=== PATIENT | male | born 1975 | race Caucasian/White ===

== ENCOUNTER 2018-09-08 17:06 | Emergency (ER) | payer OTHER ==
[2018-09-08 17:12] VITALS: BP 158/101
[2018-09-08] MEDS ORDERED: predniSONE 20 MG TABLET PO STA (17:35)
[2018-09-08] MEDS ORDERED: valACYclovir 500 MG TABLET PO STA (17:35)
--- NOTE | 2018-09-08 17:40 | ED Physician Documentation ---
PD HPI FOCAL NEURO - Stated complaint Stated Complaint: LT FACE NUMB/MIGRAINE - Chief complaint Chief Complaint: Neuro - History obtained from History obtained from: Patient, Family - History of Present Illness Timing - onset: How many hours ago (4.5) Timing - duration: Hours (4.5) Timing - details: Gradual onset Severity of deficit: Moderate Weakness: Face Numbness: Face Associated symptoms: No: Headache, Nausea / vomiting, Seizure, Syncope, Fall, H ead injury, Chest pain Contributing factors: negative: Anticoagulated, Vascular dz, Atrial fibrillation, Prosthetic heart valve Baseline status: positive: A&OX3, ambulatory, indep Similar symptoms before: Diagnosis (States has had similar symptoms with migraines in the past) Recently seen: Not recently seen - Additional information Additional information: Patient states that the left side of his face started going numb and difficulty moving at approximately 4 hours prior to arrival. Yesterday he had difficulties with taste on the left side of the tongue. Review of Systems Constitutional: denies: Fever, Chills GI: denies: Vomiting Skin: denies: Rash Musculoskeletal: denies: Neck pain, Back pain Neurologic: denies: Headache PD PAST MEDICAL HISTORY - Past Medical History Cardiovascular: Hypertension Musculoskeletal: Chronic back pain - Present Medications Home Medications: Ambulatory Orders Medication Instructions Recorded Confirmed Ibuprofen [Motrin] 1 tab PO Q8HR PRN 04/11/16 04/11/16 Rizatriptan Benzoate [Maxalt] 10 mg PO DAILY 04/11/16 04/11/16 hydroCHLOROthiazide 25 mg PO DAILY 04/11/16 04/11/16 [Hydrochlorothiazide] Valacyclovir HCl [Valtrex] 1,000 mg PO TID #21 tablet 09/08/18 predniSONE [Deltasone] 10 mg PO [id number] #42 tab 09/08/18 - Allergies Allergies/Adverse Reactions: Allergies Allergy/AdvReac Type Severity Reaction Status Date / Time methylphenidate HCl * Allergy Unknown Verified 09/08/18 17:12 [From Ritalin] - Social History Does the pt smoke?: No Smoking Status: Never smoker Does the pt drink ETOH?: Yes PD ED PE NORMAL - Vitals Vital signs reviewed: Yes - General General: Alert and oriented X 3, No acute distress, Well developed/nourished - HEENT HEENT: PERRL, EOMI, Moist mucous membranes - Neck Neck: Supple, no meningeal sign - Cardiac Cardiac: RRR - Respiratory Respiratory: No respiratory distress, Clear bilaterally - Abdomen Abdomen: Soft, Non tender, Non distended - Derm Derm: Warm and dry - Neuro Neuro: Alert and oriented X 3 Eye Opening: Spontaneous Motor: Obeys Commands Verbal: Oriented GCS Score: 15 - Psych Psych: Normal mood, Normal affect - Free text exam Free text exam: Patient with flattening of the left nasolabial fold. Positive Stroud's phenomenon of the left eye. Forehead is involved on raising of the eyebrows on the left side. NIHSS - Time Time: 17:30 - Level of Consciousness Level of consciousness: (0) Alert, Keenly responsive LOC Questions: (0) Answers both Q's correct LOC Commands: (0) Performs both correctly - Gaze Best Gaze: (0) Normal - Visual Visual: (0) No loss - Facial Palsy Facial Palsy: (2) Partial paralysis - Motor Arms (both separate) Motor Arm (right): (0) No drift Motor Arm (left): (0) No drift - Motor Legs (both separate) Motor Leg (right): (0) No drift Motor Leg (left): (0) No drift - Limb Ataxia Limb Ataxia: (0) Absent - Sensory Sensory: (0) Normal - Best Language Best Language: (0) No aphasia - Dysarthria Dysarthria: (0) Normal - Extinction and Inattention (formally neg Extinction and inattention: (0) No abnormality - Total Score/Results Total Score/Result: 2 Results - Vitals Vitals: Vital Signs - 24 hr 09/08/18 17:11 Temperature 36.6 C Heart Rate 74 Respiratory 18 Rate Blood Pressure 158/101 H O2 Saturation 99 Oxygen O2 Source Room air - EKG (time done) 1715 Rate: Rate (enter#) (66) Rhythm: NSR [place]: Normal Intervals: Normal HI QRS: Normal Ischemia: Normal ST segments PD MEDICAL DECISION MAKING - ED course Complexity details: considered differential, d/w patient, d/w family ED course: 43-year-old male presents to the emergency department with Stroud's palsy. Will treat with prednisone and Valtrex. Will also use artificial tears for home. No signs of stroke. No headache to suggest complex migraine. Patient and family counseled regarding signs and symptoms for which I believe and urgent re- evaluation would be necessary. Patient with good understanding of and agreement to plan and is comfortable going home at this time This document was made in part using voice recognition software. While efforts are made to proofread this document, sound alike and grammatical errors may occur. Departure - Departure Disposition: 01 Home, Self Care Clinical Impression: Stroud's palsy Condition: Good Instructions: ED [place] Palsy Follow-Up: your,doctor in 1 week [Other] Prescriptions: predniSONE [Deltasone] 10 mg PO [id number] #42 tab Valacyclovir HCl [Valtrex] 1,000 mg PO TID #21 tablet Comments: Take the medications as prescribed. Return if you worsen. You should also use artificial tears to help lubricate the left eye as it may become dry and you do not want to develop a corneal ulcer.If the left eye is not closing well, you can use a small piece of tape to help keep it shut while you sleep. You can also use gel tears at night to help lubricate the eye longer.
== END 2018-09-08 17:44 | disposition home or self-care (01) ==
LOC: ED 17:06
DX: G51.0 Bell's palsy (principal); I10 Essential (primary) hypertension
CPT/HCPCS: 93005; 99283; A9270; J7512

== ENCOUNTER 2018-09-23 15:49 | Outpatient (CLI) | payer OTHER ==
[2018-09-23] MEDS ORDERED: GADOBUTROL 15 MMOL/15 ML VIAL ONE (17:14)
[2018-09-23] MEDS ORDERED: GADOBUTROL 15 MMOL/15 ML VIAL IVP ONE (17:24)
--- NOTE | 2018-09-23 18:14 | MRI Report ---
Reason: CLAY'S PALSY Procedure Date: 09/23/2018 Accession Number: [id number] / [id number] Procedure: MRI - Brain W/WO CPT Code: FULL RESULT: EXAM: MRI BRAIN AND INTERNAL AUDITORY CANAL (IAC),WITHOUT AND WITH CONTRAST. EXAM DATE: 09/23/2018 05:36 PM. CLINICAL HISTORY: 43-year-old with one-week history of left-sided Clay's palsy symptoms. Evaluate for intracranial pathology. COMPARISON: MR brain 10/18/2012. TECHNIQUE: Multiplanar, multisequence T1-weighted and fluid-sensitive MRI sequences of the brain and IACs were performed. Other: None. IV Contrast: 13 cc Gadavist. FINDINGS: Brain Volume: Normal for age. Parenchyma/Dura: No acute hemorrhage, mass, or acute infarct.There are approximately 7 foci of T2/FLAIR signal hyperintensity seen that appear similar to MR brain 10/18/2012. No abnormal enhancement. Internal Auditory Canals (IACs): The cerebellopontine angles and internal auditory canals appear clear with no definite mass or mass-like enhancement seen. The cisternal course of the 7th and 8th cranial nerves appears normal. There is abnormal hyperenhancement of the left facial nerve beginning at the geniculate ganglion and extending to the tympanic and mastoid segment. The enhancement appears to be smooth with no definite nodularity seen. Otherwise the inner ear structures are symmetric and unremarkable. Ventricles/Cisterns: No hydrocephalus. No abnormal extra-axial fluid collection or hemorrhage. Orbits: Symmetric and unremarkable. Sella [place]: The pituitary gland, cavernous sinuses, suprasellar cistern and optic chiasm are unremarkable. Vasculature: Normal signal flow void is seen in the major arterial structures at the skull base. The dural sinuses are patent and enhance normally. Sinuses: No acute sinus disease. Bones: No focal pathologic appearing marrow signal changes. Other: None. IMPRESSION: 1. There is smooth enhancement of the left facial nerve, as detailed above. Finding is suspicious for potential neuritis. Possibility of schwannoma is considered less likely. Possibility of metastatic disease or lymphoma is considered highly unlikely. 2. Otherwise the internal auditory canals and posterior fossa appear patent with no definite mass or mass enhancement seen. 3. No acute infarct, acute intracranial hemorrhage, mass, hydrocephalus, or midline shift. No other normal intracranial enhancement. 4. There are a few scattered white matter changes seen that appear similar to MR brain 10/18/2012 and are nonspecific, but may represent sequela of prior migraines. RADIA
== END 2018-09-23 15:50 | disposition home or self-care (01) ==
LOC: DI 15:49
PROVIDERS: ATTEND General Practice
DX: G51.0 Bell's palsy (principal)
CPT/HCPCS: 70553; A9585

== ENCOUNTER 2020-11-17 14:19 | Emergency (ER) | payer OTHER ==
--- OUTSIDE RECORDS SUMMARY | 2020-11-17 14:53 | EXTERNAL MEDICAL SUMMARY RPT | Continuity of Care Document ---
:1975 Demographics Phone Unavailable Preferred Language Unknown Marital Status Unknown Jewish Affiliation Unknown Race Unknown Ethnic Group Unknown Author Organization [facility] Address [address] [place] [address] Phone Allergies Encounters Medications Problems Results
--- NOTE | 2020-11-17 15:42 | ED Physician Documentation ---
History of Present Illness - Stated complaint Stated Complaint: RIGHT EYE PROBLEM - Chief complaint Chief Complaint: Heent - Additonal information Additional information: 45-year-old male presents the emergency department for evaluation of acute mild right eye pain as well as redness and clear watery discharge. He reports pulling the smoker out today to get ready for the summer season and used an oven house cleaner supervisor to clean it as well some 409. He reports using gloves and using these products downwind. Though he does not think that he touched his eye with the products shortly after starting the smoker he began having right eye pain and watering. No contact lens use. He is unsure if something could have gotten in his eye like smoke or debris. He endorses mild pain only and no vision loss. Review of Systems Constitutional: reports: Reviewed and negative Eyes: reports: Discharge, Irritation. denies: Loss of vision, Decreased vision, Photophobia Ears: reports: Reviewed and negative Nose: reports: Reviewed and negative Throat: reports: Reviewed and negative Cardiac: reports: Reviewed and negative Respiratory: reports: Reviewed and negative GI: reports: Reviewed and negative : reports: Reviewed and negative PD PAST MEDICAL HISTORY - Past Medical History Cardiovascular: Hypertension Musculoskeletal: Chronic back pain - Present Medications Home Medications: Ambulatory Orders Medication Instructions Recorded Confirmed Ibuprofen [Motrin] 1 tab PO Q8HR PRN 04/11/16 04/11/16 Rizatriptan Benzoate [Maxalt] 10 mg PO DAILY 04/11/16 04/11/16 hydroCHLOROthiazide 25 mg PO DAILY 04/11/16 04/11/16 [Hydrochlorothiazide] Valacyclovir HCl [Valtrex] 1,000 mg PO TID #21 tablet 09/08/18 predniSONE [Deltasone] 10 mg PO [id number] #42 tab 09/08/18 Erythromycin Base [Erythromycin 1 applic OP TID #3.5 gm 11/17/20 Ophthalmic Ointment] - Allergies Allergies/Adverse Reactions: Allergies Allergy/AdvReac Type Severity Reaction Status Date / Time methylphenidate HCl * Allergy Unknown Verified 11/17/20 14:28 [From Ritalin] - Social History Does the pt smoke?: No Smoking Status: Never smoker Does the pt drink ETOH?: Yes PD ED PE EXPANDED - General General: Alert, No acute distress - HEENT HEENT: Other (Right eye general conjunctival injection and irritation with clear watering. Positive fluorescein uptake at 9:00 on the scleral margin consistent with corneal abrasion. No foreign body identified. pH 7.4.) Results - Vitals Vitals: Vital Signs - 24 hr 11/17/20 14:24 Temperature 36.6 C Heart Rate 66 Respiratory 16 Rate Blood Pressure 158/84 H O2 Saturation 99 Oxygen O2 Source Room air PD MEDICAL DECISION MAKING - ED course Complexity details: reviewed results, re-evaluated patient, d/w patient ED course: 45-year-old male presents emergency department with acute right eye injection redness and watering. No vision changes. This occurred after starting his smoker as well as using cleaning products. He is unsure if he may have you gotten the cleaning product near his eye as he is wearing gloves. On exam he does have a corneal abrasion at 9:00. His eye was irrigated thoroughly with 500 mils of saline. No foreign body was identified. Patient will be prescribed erythromycin ointment and advised close follow-up with ophthalmology on Thursday. Emergent return precautions were discussed for worsening symptoms. Departure - Departure Disposition: 01 Home, Self Care Clinical Impression: Corneal abrasion, right Qualifiers: Encounter type: initial encounter Qualified Code(s): S05.01XA - Injury of conjunctiva and corneal abrasion without foreign body, right eye, initial encounter Condition: Stable Record reviewed to determine appropriate education?: Yes Instructions: ED Eye Injury Corneal Abrasion Prescriptions: Erythromycin Base [Erythromycin Ophthalmic Ointment] 1 applic OP TID #3.5 gm Comments: Jose you have sustained abrasion to the right cornea. This may be from the smoker or it could be chemical conjunctivitis from using the chemicals to clean it. As we discussed the pH in your eye was normal. We did irrigate your eye with saline solution. I would like you to place the antibiotic ointment in your eye 3 times a day for the next week. It is important that you schedule follow-up with your machine puller and laster to ensure that the abrasion is improving. Return to the ER if you are having worsening symptoms increased pain tearing or discharge. Try not to rub your eye. For discomfort I do recommend that you place a cool compress over the eye for 5 minutes 3 times a day.
[2020-11-17] MEDS ORDERED: ERYTHROMYCIN OPHTH OINT 1 GM TUBE RIGHTEYE STA (16:05)
[2020-11-17 16:18] VITALS: BP 155/83
== END 2020-11-17 16:18 | disposition home or self-care (01) ==
LOC: ED 14:19
DX: S05.01XA Injury of conjunctiva and corneal abrasion without foreign body, right eye, initial encounter (principal); X58.XXXA Exposure to other specified factors, initial encounter; Y93.G2 Activity, grilling and smoking food; I10 Essential (primary) hypertension
CPT/HCPCS: 99282; 99283; J3490

== ENCOUNTER 2021-04-17 13:58 | Outpatient (CLI) | payer OTHER ==
--- NOTE | 2021-04-17 14:52 | MRI Report ---
PROCEDURE: Lumbar Spine W/O INDICATIONS: LUMBAR RADICULOPATHY TECHNIQUE: Noncontrast sagittal T1 spin echo and T2 fast echo, sagittal STIR, axial T1 and T2 fast spin echo thr ough the lumbar spine. In cases with scoliosis, additional coronal T2 fast spin echo may be performe d. COMPARISON: 05/03/2012 FINDINGS: Image quality: Excellent. Alignment and Curvature: There is normal bony alignment. Bone Marrow: Marrow is of normal overall signal. No acute vertebral body compression fractures. Spinal Cord: Conus medullaris terminates at the L1 level. Visualized cord demonstrates normal signa l and size. Paraspinous Soft Tissues: No paravertebral masses. At the inferior aspect of the right kidney, ther e is a simple appearing cyst seen that measures up to 2.9 cm. This has grown compared to 2012. T12-L1: Normal in appearance. L1-L2: Normal in appearance. L2-L3: The disc height is well-preserved. There is loss of disc signal seen. Mild to moderate disc bulge is seen, which is eccentric to the left. There is moderate left-sided and [id number] rig ht-sided neuroforaminal narrowing seen. Minimal central canal narrowing is seen. These degenerative changes have progressed when compared to the prior examination. L3-L4: The disc height is well-preserved. There is loss of disc signal seen. Moderate disc bulge i s seen at this level. There is a left foraminal disc protrusion, as on series 601 image 18 Moderate facet hypertrophy is seen. There is at least moderate right-sided and moderate to severe left-sided neuroforaminal narrowing seen. There is a minimal degree of compression seen upon the exiting left L3 nerve root. Mild central canal narrowing is seen. These degenerative changes are worse than in 20 12 L4-L5: Moderate loss of disc height and signal are seen. Moderate disc bulge is seen at this level . Moderate facet hypertrophy is seen. Moderate bilateral neural foraminal narrowing is seen. M ild central canal narrowing is seen. These degenerative changes have progressed when compared to the prior examination. L5-S1: At least moderate loss of disc height and disc signal can be seen. Reactive marrow endplate changes are seen, which are hyperintense on T1-weighted and T2-weighted imaging, without significant increased STIR signal. These imaging findings are most consistent with fatty metaplasia (Modic type 2 change). Mild disc bulge is seen. Mild to moderate facet hypertrophy is seen. There is moderate to severe left-sided and at least moderate right-sided neuroforaminal narrowing seen. Compression is seen upon the exiting nerve roots, left worse than right. No significant central canal narrowing is seen. These degenerative changes are worse than in 2012 IMPRESSION: Multiple levels of lumbar spine degenerative change are seen, which have progressed comp ared to 2012. These are overall most prominent at the L5-S1 level. Incidental note is made of: Simple appearing right renal cyst, which has increased in size compared to 2012. Reviewed by: Valentín Lyons MD on 04/17/2021 1:51 PM [place] Approved by: Valentín Lyons MD on 04/17/2021 1:51 PM [place] Station ID: [id number]
== END 2021-04-17 13:59 | disposition home or self-care (01) ==
LOC: DI 13:58
PROVIDERS: ATTEND Student in an Organized Health Care Education/Training Program
DX: M51.36 Other intervertebral disc degeneration, lumbar region (principal); M51.37 Other intervertebral disc degeneration, lumbosacral region; M47.816 Spondylosis without myelopathy or radiculopathy, lumbar region; M47.817 Spondylosis without myelopathy or radiculopathy, lumbosacral region; M48.061 Spinal stenosis, lumbar region without neurogenic claudication; M48.07 Spinal stenosis, lumbosacral region

== ENCOUNTER 2022-09-01 15:40 | Outpatient (CLI) | payer OTHER ==
--- NOTE | 2022-09-02 08:16 | MRI Report ---
PROCEDURE: SHOULDER WO - LT INDICATIONS: LEFT SHOULDER PAIN TECHNIQUE: Noncontrast oblique coronal T2 fast spin echo with fat saturation, oblique sagittal T1 spin echo and T2 fast spin echo with fat saturation, axial T1 spin echo and T2 fast spin echo with fat saturation t hrough the shoulder. COMPARISON: None. FINDINGS: Image quality: Excellent. Rotator cuff: Mild T2 signal elevation diffusely throughout the supraspinatus and infraspinatus tendo ns at the humeral insertion sites extending the muscular tendinous junctions, indicating tendinopathy . Superimposed low-grade partial thickness articular surface tearing of the posterior supraspinatus, mid and anterior infraspinatus tendon at the humeral insertion site. Low-grade partial-thickness burs al surface tearing of the posterior infraspinatus tendon at the humeral insertion site extending the muscular tendinous junction. Low-grade intrasubstance and articular surface tearing of the superior a spect of the subscapularis tendon at the humeral insertion site extending the muscular tendinous junc tion. Teres minor tendon is intact. No rotator cuff atrophy. Bones and bursae: No bone marrow contusions or fractures. Mild acromioclavicular joint degeneration. The acromion demonstrates conventional anatomy, without an os acromiale. No pathologic subacromial /subdeltoid bursal fluid is present. Capsule and soft tissues: There is moderate ill-defined T2 signal elevation at the anterior aspect o f the humeral head, lateral to the biceps tendon. In the absence of intra-articular contrast, the lab rum and glenohumeral ligaments appear intact. The long head of the biceps tendon demonstrates normal location and morphology. The rotator interval appears normal, without fibrosis. The coracohumeral ligament is normal in thickness. IMPRESSION: 1. Supraspinatus and infraspinatus tendinopathy. Low-grade tearing of the supraspinatus, infraspinatu s, and subscapularis tendons. No full-thickness rotator cuff tear. 2. Acromioclavicular joint osteoarthritis. 3. Focal region of soft tissue edema at the anterior aspect of the humeral head, which could indicate soft tissue injury, if there is a history of recent injury. Reviewed by: Salomón Mendez MD on 09/02/2022 8:15 AM PDT Approved by: Salomón Mendez MD on 09/02/2022 8:15 AM PDT Station ID: [id number]
== END 2022-09-01 15:41 | disposition home or self-care (01) ==
LOC: DI 15:40
PROVIDERS: ATTEND Student in an Organized Health Care Education/Training Program
DX: M75.112 Incomplete rotator cuff tear or rupture of left shoulder, not specified as traumatic (principal); M19.012 Primary osteoarthritis, left shoulder; R60.0 Localized edema

== ENCOUNTER 2022-11-14 16:47 | Outpatient (CLI) | payer OTHER ==
--- NOTE | 2022-11-14 19:07 | MRI Report ---
PROCEDURE: IAC'S WO INDICATIONS: TINNITUS TECHNIQUE: Noncontrast axial T1 spin echo, axial T2 fast spin echo, sagittal and axial FLAIR, coronal T2 fast sp in echo, axial gradient echo, axial diffusion and ADC through the brain. In this patient, thin secti on T2 space images were obtained through the internal auditory canals. Noncontrast fat-saturated thin section T1-weighted images were obtained through the internal auditory canals. COMPARISON: 09/23/2018, 10/18/2012 FINDINGS: Image quality: Excellent. CSF Spaces: Basal cisterns are patent. No extra-axial fluid collections. Ventricles are normal in size and shape. Brain: No intracranial masses or hemorrhage. Sheth/white matter interface is normal. Brainstem appe ars normal. Diffusion-weighted images demonstrate no acute ischemic insult. No chronic ischemic ins ults. Normal intravascular flow voids are present. In this patient with this given history, scrutiny is given to the cerebellopontine angle cisterns and to the internal auditory canals. To the limits of this standard protocol study, no masses can be see n within these regions. A few scattered foci of T2-weighted hyperintensity can be seen within the periventricular and deep wh ite matter, which are similar to the prior examination. Skull and face: Calvarium has normal marrow signal. Orbits appear normal. Sinuses: Sinuses and mastoids are clear. IMPRESSION: To the limits of this study performed without IV contrast, no findings of masses can be seen involvin g the internal auditory canals or the cerebellopontine angle cisterns. Scattered foci of T2-weighted hyperintensity can be seen within the white matter, which are nonspecif ic. These are most likely related to early chronic small vessel ischemic change, however. Reviewed by: Valentín Lyons MD on 11/14/2022 6:05 PM AXEL Approved by: Valentín Lyons MD on 11/14/2022 6:05 PM AXEL Station ID: [id number]
== END 2022-11-14 16:48 | disposition home or self-care (01) ==
LOC: DI 16:47
PROVIDERS: ATTEND Student in an Organized Health Care Education/Training Program
DX: H93.12 Tinnitus, left ear (principal); H91.90 Unspecified hearing loss, unspecified ear